=== PATIENT | female | born 1970 | race Caucasian/White ===

== ENCOUNTER 2024-04-06 12:11 | Inpatient (IN) | payer OTHER ==
[~2024-04-06] VITALS: Ht 154.9 cm; Wt 39.5 kg
[2024-04-06] VITALS (16 sets, daily range): BP systolic 102–131; BP diastolic 63–110; TEMP 98.5; O2SAT 91–97
[2024-04-06 13:17] LABS: BASOPHILS % (AUTO) 0.1 % (0.0-2.0); HEMATOCRIT 52 % (33-45); HEMOGLOBIN 16.7 g/dL (11.5-14.8); LYMPHOCYTES # (AUTO) 1.1 K/uL (0.8-4.8); LYMPHOCYTES % (AUTO) 8.3 % (20.0-44.0); MEAN CORPUSCULAR HEMOGLOBIN 30 PG (26.0-33.0); MEAN CORPUSCULAR HGB CONC 32 g/dl (31.0-36.0); MEAN CORPUSCULAR VOLUME 92 fL (82-100); MONOCYTES # (AUTO) 1.5 K/uL (0.1-1.30); MONOCYTES % (AUTO) 11.4 % (2.0-12.0); NEUTROPHILS # (AUTO) 10.3 K/uL (1.8-8.9); NEUTROPHILS % (AUTO) 80.2 % (43.0-81.0); PLATELET COUNT (AUTO) 211 K/uL (150-450); WHITE BLOOD COUNT (AUTO) 12.9 K/uL (4.3-11.0)
[2024-04-06 13:26] LABS: INR 1.46 (0.91-1.10); PARTIAL THROMBOPLASTIN TIME 32.8 SEC (24.3-34.3); PROTHROMBIN TIME 15.1 SECS (9.2-11.1)
[2024-04-06] MEDS ORDERED: ALBUTEROL FS 2.5 MG/3 ML VIAL.NEB ONE (13:34)
[2024-04-06] MEDS ORDERED: IPRATROPIUM NEB FS 0.5 MG/2.5 ML AMPUL.NEB ONE (13:34)
[2024-04-06] MEDS: ALBUTEROL FS 2.5 MG/3 ML VIAL.NEB NEB ONE (13:42)
[2024-04-06] MEDS: IPRATROPIUM NEB FS 0.5 MG/2.5 ML AMPUL.NEB NEB ONE (13:42)
[2024-04-06 13:57] LABS: ALANINE AMINOTRANSFERASE 19 U/L (12-78); ALBUMIN 2.9 g/dL (3.4-5.0); ALKALINE PHOSPHATASE 109 U/L (46-116); ASPARTATE AMINOTRANSFERASE 21 U/L (15-37); BILIRUBIN,DIRECT 0.2 mg/dL (0.0-0.2); BILIRUBIN,TOTAL 0.7 mg/dL (0.2-1.0); CALCIUM, SERUM 9.2 mg/dL (8.5-10.1); CHLORIDE 84 mmol/L (98-107); CREATININE 1.4 mg/dL (0.6-1.3); POTASSIUM 3.2 mmol/L (3.5-5.1); SODIUM SERUM 131 mmol/L (136-145); UREA NITROGEN, BLOOD 29 mg/dL (7-18)
[2024-04-06 14:01] LABS: LACTIC ACID 2.9 mmol/L (0.4-2.0)
[2024-04-06] MEDS ORDERED: CEFTRIAXONE 1GM BAG (ER ONLY) 50 ML IV ONE (14:04)
[2024-04-06 14:08] LABS: CARBON DIOXIDE 10 mmol/L (21-32)
[2024-04-06 14:11] LABS: APPEARANCE,URINE SLIGHTLY CLOUDY (CLEAR); BILIRUBIN,URINE 1+ (NEGATIVE); BLOOD, URINE 1+ Ery/uL (NEGATIVE); COLOR,URINE YELLOW (YELLOW); KETONES,URINE 2+ mg/dL (NEGATIVE); LEUKOCYTE ESTERASE ,URINE NEGATIVE (NEGATIVE); NITRITE, URINE NEGATIVE (NEGATIVE); PH,URINE 5.5 (5.0-8.0); PROTEIN,URINE 2+ mg/dl (NEGATIVE); UGLUCOSE 3+ mg/dL (NEGATIVE); UROBILINOGEN,URINE 0.2 EU/dL (0.2)
[2024-04-06] MEDS: CEFTRIAXONE 1GM BAG (ER ONLY) 1 GM/50 ML PIGGYBACK IV ONE (14:13)
[2024-04-06] MEDS: IV NS 0.9% 1,000 ML BAG IV ONE (14:13)
[2024-04-06] MEDS ORDERED: Magnesium 1GM/D5W 100ML PREMIX 100 ML IV ONE (14:21)
[2024-04-06] MEDS ORDERED: POTASSIUM CL. PREMIX PERIPHER. 150 ML ONE (14:21)
[2024-04-06 14:28] LABS: GLUCOSE 886 mg/dL (74-106)
[2024-04-06] MEDS ORDERED: IV PREMIX NS + 40 MEQ KCL 1 L IV PRN (14:30)
[2024-04-06] MEDS ORDERED: INSULIN REGULAR, HUMAN 100 UNITS in IV NS 0.9% 100 ML IV PRN (14:30)
[2024-04-06 14:38] LABS: SQUAMOUS EPITHELIAL CELL,UR Many /HPF (None Seen)
[2024-04-06] MEDS: POTASSIUM CL. PREMIX PERIPHER. 50 ML IV SCH (14:46)
[2024-04-06] MEDS: Magnesium 1GM/D5W 100ML PREMIX 100 ML IV SCH (14:46)
[2024-04-06 14:51] LABS: ADD URINE CULTURE YES; BACTERIA,URINE Moderate /HPF (None Seen); YEAST,URINE Few /HPF (None Seen)
[2024-04-06 14:57] LABS: BAND % (MANUAL) 6 % (0.0-5.0); BASOPHILS % (MANUAL) 0 % (0.0-2.0); EOSINOPHILS % (MANUAL) 0 % (0-4); LYMPHOCYTES % (MANUAL) 11 % (16-48); MONOCYTES % (MANUAL) 7 % (0-11.0); NEUTROPHILS % (MANUAL) 76 (42-76); PLATELET ESTIMATE ADEQUATE
[2024-04-06] MEDS: AZITHROMYCIN 500 MG in IV D5W 250 ML IV ONE (14:57)
[2024-04-06 15:21] LABS: CALCIUM, SERUM 7.8 mg/dL (8.5-10.1); CREATININE 1.4 mg/dL (0.6-1.3); MAGNESIUM 2.5 mg/dL (1.8-2.4); PHOSPHORUS 4.2 mg/dL (2.5-4.9)
[2024-04-06] MEDS ORDERED: ZOLPIDEM TARTRATE 5 MG TABLET PO PRN (15:30)
[2024-04-06] MEDS ORDERED: MORPHINE SULFATE INJ 2 MG/ML DISP.SYRIN IV PRN (15:30)
[2024-04-06] MEDS ORDERED: MAGNESIUM HYDROXIDE 30 ML UDC PO PRN (15:30)
[2024-04-06] MEDS ORDERED: MAG HYDROX/AL HYDROX/SIMETH 30 ML UDC PO PRN (15:30)
[2024-04-06] MEDS ORDERED: Z GUARD REMEDY 4 OZ OINT TP PRN (15:30)
[2024-04-06 16:59] LABS: POTASSIUM 3.4 mmol/L (3.5-5.1)
[2024-04-06 17:00] LABS: CALCIUM, SERUM 7.8 mg/dL (8.5-10.1); CREATININE 1.3 mg/dL (0.6-1.3); MAGNESIUM 2.8 mg/dL (1.8-2.4)
[2024-04-06 17:02] LABS: PHOSPHORUS 3.4 mg/dL (2.5-4.9)
[2024-04-06 18:42] LABS: CALCIUM, SERUM 7.8 mg/dL (8.5-10.1); CREATININE 1.4 mg/dL (0.6-1.3); MAGNESIUM 2.7 mg/dL (1.8-2.4); PHOSPHORUS 3.3 mg/dL (2.5-4.9); POTASSIUM 3.6 mmol/L (3.5-5.1)
[2024-04-06] MEDS: INSULIN REGULAR, HUMAN 100 UNIT in IV NS 0.9% 99 ML IV PRN (19:48)
[2024-04-06] MEDS: BLOOD SUGAR DIAGNOSTIC 1 EACH STRIP IN SCH (19:48)
[2024-04-06 20:59] LABS: CALCIUM, SERUM 7.8 mg/dL (8.5-10.1); CREATININE 1.3 mg/dL (0.6-1.3); POTASSIUM 3.3 mmol/L (3.5-5.1)
[2024-04-06] MEDS: ENOXAPARIN SODIUM 40 MG/0.4 ML DISP.SYRIN SQ SCH (21:39)
[2024-04-07] VITALS (34 sets, daily range): BP systolic 94–137; BP diastolic 54–86; TEMP 98.7–99.5; O2SAT 87–99
[2024-04-07] MEDS: IV NS 0.9% 500 ML IV ONE (00:47)
[2024-04-07] MEDS: IV NS 0.9% 1,000 ML IV PRN (01:10)
[2024-04-07 01:55] LABS: CALCIUM, SERUM 7.8 mg/dL (8.5-10.1); CREATININE 1.1 mg/dL (0.6-1.3); POTASSIUM 3.2 mmol/L (3.5-5.1)
[2024-04-07] MEDS ORDERED: Potassium Chloride 20 MEQ in IV D5/ 0.9% NACL 1,000 ML IV PRN (03:00)
[2024-04-07] MEDS: IV D5/ 0.9% NACL 1,000 ML IV PRN (03:45)
[2024-04-07] MEDS: POTASSIUM CL. PREMIX PERIPHER. 50 ML IV SCH (03:53)
[2024-04-07 05:33] LABS: BASOPHILS % (AUTO) 0.1 % (0.0-2.0); HEMATOCRIT 41 % (33-45); HEMOGLOBIN 14.5 g/dL (11.5-14.8); LYMPHOCYTES # (AUTO) 0.8 K/uL (0.8-4.8); MEAN CORPUSCULAR HEMOGLOBIN 30 PG (26.0-33.0); MEAN CORPUSCULAR HGB CONC 35 g/dl (31.0-36.0); MEAN CORPUSCULAR VOLUME 84 fL (82-100); MONOCYTES # (AUTO) 0.6 K/uL (0.1-1.30); MONOCYTES % (AUTO) 7.2 % (2.0-12.0); NEUTROPHILS # (AUTO) 6.5 K/uL (1.8-8.9); NEUTROPHILS % (AUTO) 82.7 % (43.0-81.0); PLATELET COUNT (AUTO) 156 K/uL (150-450); RED CELL DISTRIBUTION WIDTH 13.1 % (11.5-15.0); WHITE BLOOD COUNT (AUTO) 7.8 K/uL (4.3-11.0)
[2024-04-07 05:36] LABS: CALCIUM, SERUM 7.8 mg/dL (8.5-10.1); POTASSIUM 3.1 mmol/L (3.5-5.1)
[2024-04-07 05:41] LABS: MAGNESIUM 2.1 mg/dL (1.8-2.4)
[2024-04-07 05:55] LABS: PHOSPHORUS 0.5 mg/dL (2.5-4.9)
[2024-04-07 07:04] LABS: THYROID STIMULATING HORMONE 0.24 uIU/mL (0.358-3.74)
[2024-04-07] MEDS: PANTOPRAZOLE 40 MG TABLET.DR PO SCH (08:13)
[2024-04-07 09:17] LABS: CALCIUM, SERUM 7.6 mg/dL (8.5-10.1); CREATININE 0.9 mg/dL (0.6-1.3); POTASSIUM 3.5 mmol/L (3.5-5.1)
[2024-04-07] MEDS ORDERED: DEXTROSE 50%-WATER 50 ML DISP.SYRIN IV PRN (11:00)
[2024-04-07] MEDS: Sodium Phosphate 30 MMOL in IV NS 0.9% 250 ML IV SCH (11:25)
[2024-04-07] MEDS: BLOOD SUGAR DIAGNOSTIC 1 EACH STRIP VI SCH (12:02)
[2024-04-07] MEDS: INSULIN REGULAR, HUMAN 100 UNIT/ML 3 ML VIAL SQ PRN (12:08)
[2024-04-07 12:28] LABS: LYMPHOCYTES % (MANUAL) 18 % (16-48); MONOCYTES % (MANUAL) 6 % (0-11.0); PLATELET ESTIMATE ADEQUATE
[2024-04-07 12:31] LABS: BAND % (MANUAL) 19 % (0.0-5.0); NEUTROPHILS % (MANUAL) 57 (42-76)
[2024-04-07] MEDS: INSULIN GLARGINE, 100 UNIT/ML CARTRIDGE SQ SCH (14:06)
[2024-04-07 14:20] LABS: CALCIUM, SERUM 7.4 mg/dL (8.5-10.1); CREATININE 0.9 mg/dL (0.6-1.3); POTASSIUM 2.9 mmol/L (3.5-5.1)
[2024-04-07 16:54] LABS: CALCIUM, SERUM 7.4 mg/dL (8.5-10.1); CREATININE 0.7 mg/dL (0.6-1.3)
[2024-04-07 17:04] LABS: POTASSIUM 2.7 mmol/L (3.5-5.1)
[2024-04-07] MEDS: GLUCERNA SHAKE 237 ML CAN PO SCH (17:42)
[2024-04-07] MEDS: POTASSIUM CHLORIDE 20 MEQ TAB.PRT.SR PO ONE (18:04)
[2024-04-07] MEDS: ACETAMINOPHEN 325 MG TABLET PO PRN (18:04)
[2024-04-07] MEDS: *INSULIN REGULAR(HUMULIN R)HUM 100 UNIT/ML VIAL SQ PRN (21:25)
[2024-04-07] MEDS ORDERED: CEFTRIAXONE 1GM BAG (ER ONLY) 50 ML IV ONE (23:48)
[2024-04-08] VITALS: BP 100/61; TEMP 99; O2SAT 92
[2024-04-08] MEDS: CEFTRIAXONE 1 G in IV D5W 50 ML IV SCH ×2 (00:08→23:10)
[2024-04-08 04:00] VITALS: BP 133/80; TEMP 98.2; O2SAT 96
[2024-04-08 06:36] LABS: BASOPHILS % (AUTO) 0.4 % (0.0-2.0); EOSINOPHILS % (AUTO) 0.3 % (0.0-6.0); HEMATOCRIT 36 % (33-45); HEMOGLOBIN 12.7 g/dL (11.5-14.8); LYMPHOCYTES % (AUTO) 9.8 % (20.0-44.0); MEAN CORPUSCULAR HEMOGLOBIN 30 PG (26.0-33.0); MEAN CORPUSCULAR HGB CONC 35 g/dl (31.0-36.0); MEAN CORPUSCULAR VOLUME 85 fL (82-100); MONOCYTES # (AUTO) 0.5 K/uL (0.1-1.30); MONOCYTES % (AUTO) 5.3 % (2.0-12.0); NEUTROPHILS # (AUTO) 8.3 K/uL (1.8-8.9); NEUTROPHILS % (AUTO) 84.2 % (43.0-81.0); PLATELET COUNT (AUTO) 140 K/uL (150-450); RED BLOOD CELL COUNT(AUTO) 4.19 MIL/uL (4.0-5.2); RED CELL DISTRIBUTION WIDTH 13.4 % (11.5-15.0); WHITE BLOOD COUNT (AUTO) 9.9 K/uL (4.3-11.0)
[2024-04-08 07:09] LABS: ALBUMIN 1.5 g/dL (3.4-5.0); BILIRUBIN,TOTAL 0.3 mg/dL (0.2-1.0); CALCIUM, SERUM 6.7 mg/dL (8.5-10.1); CREATININE 0.5 mg/dL (0.6-1.3); MAGNESIUM 1.6 mg/dL (1.8-2.4); POTASSIUM 2.9 mmol/L (3.5-5.1)
[2024-04-08 08:00] VITALS: BP 118/66; TEMP 99; O2SAT 95
[2024-04-08 08:21] LABS: PHOSPHORUS 0.6 mg/dL (2.5-4.9)
[2024-04-08] MEDS: ONDANSETRON HCL/PF 4 MG/2 ML VIAL IVP PRN (09:45)
[2024-04-08] MEDS: POTASSIUM CHLORIDE 20 MEQ TAB.PRT.SR PO SCH (10:23)
[2024-04-08] MEDS: MAGNESIUM OXIDE 400 MG TABLET PO ONE (10:23)
[2024-04-08] MEDS: K PHOS NEUTRAL 250 MG TABLET PO SCH (12:08)
[2024-04-08] MEDS: POTASSIUM PHOSPHATE MM 7.5 MMOL in IV NS 0.9% 100 ML IV SCH (12:26)
[2024-04-08 16:00] VITALS: BP 107/64; TEMP 99; O2SAT 95
[2024-04-08 21:56] VITALS: BP 99/61; TEMP 100.4; O2SAT 94
[2024-04-08 23:23] VITALS: BP 99/61; TEMP 98.4; O2SAT 94
[2024-04-09 05:13] VITALS: BP 102/68; TEMP 100.2; O2SAT 97
[2024-04-09 05:56] LABS: BASOPHILS % (AUTO) 0.1 % (0.0-2.0); EOSINOPHILS % (AUTO) 0.4 % (0.0-6.0); HEMATOCRIT 33 % (33-45); HEMOGLOBIN 11.5 g/dL (11.5-14.8); MEAN CORPUSCULAR HEMOGLOBIN 30 PG (26.0-33.0); MEAN CORPUSCULAR HGB CONC 35 g/dl (31.0-36.0); MEAN CORPUSCULAR VOLUME 84 fL (82-100); MONOCYTES # (AUTO) 0.6 K/uL (0.1-1.30); MONOCYTES % (AUTO) 6.1 % (2.0-12.0); NEUTROPHILS # (AUTO) 7.9 K/uL (1.8-8.9); NEUTROPHILS % (AUTO) 82.4 % (43.0-81.0); PLATELET COUNT (AUTO) 171 K/uL (150-450); RED BLOOD CELL COUNT(AUTO) 3.87 MIL/uL (4.0-5.2); WHITE BLOOD COUNT (AUTO) 9.5 K/uL (4.3-11.0)
[2024-04-09 06:39] LABS: CALCIUM, SERUM 7.2 mg/dL (8.5-10.1); CREATININE 0.6 mg/dL (0.6-1.3); MAGNESIUM 1.4 mg/dL (1.8-2.4)
[2024-04-09 06:42] LABS: POTASSIUM 2.5 mmol/L (3.5-5.1)
[2024-04-09] MEDS: POTASSIUM CL. PREMIX PERIPHER. 50 ML IV SCH (08:13)
[2024-04-09] MEDS: MAGNESIUM OXIDE 400 MG TABLET PO ONE (09:39)
[2024-04-09 12:00] VITALS: BP 115/75; TEMP 98.5; O2SAT 97
[2024-04-09] MEDS: VANCOMYCIN 1 GM in IV D5W 250ml IV ONE (13:18)
[2024-04-09 20:00] VITALS: BP 94/60; TEMP 98.1; O2SAT 95
[2024-04-09] MEDS: VANCOMYCIN 750 MG in IV D5W 250 ML IV SCH (20:05)
[2024-04-10 04:00] VITALS: BP 108/62; TEMP 98.2; O2SAT 96
[2024-04-10 08:47] LABS: BASOPHILS % (AUTO) 0.3 % (0.0-2.0); EOSINOPHILS # (AUTO) 0.1 K/uL (0.0-0.7); EOSINOPHILS % (AUTO) 0.9 % (0.0-6.0); HEMATOCRIT 38 % (33-45); HEMOGLOBIN 12.9 g/dL (11.5-14.8); LYMPHOCYTES % (AUTO) 11.2 % (20.0-44.0); MEAN CORPUSCULAR HEMOGLOBIN 30 PG (26.0-33.0); MEAN CORPUSCULAR HGB CONC 34 g/dl (31.0-36.0); MEAN CORPUSCULAR VOLUME 86 fL (82-100); MONOCYTES # (AUTO) 0.7 K/uL (0.1-1.30); MONOCYTES % (AUTO) 7.8 % (2.0-12.0); NEUTROPHILS % (AUTO) 79.8 % (43.0-81.0); PLATELET COUNT (AUTO) 223 K/uL (150-450); RED BLOOD CELL COUNT(AUTO) 4.37 MIL/uL (4.0-5.2); RED CELL DISTRIBUTION WIDTH 13.2 % (11.5-15.0); WHITE BLOOD COUNT (AUTO) 8.8 K/uL (4.3-11.0)
[2024-04-10 09:40] LABS: ALBUMIN 1.6 g/dL (3.4-5.0); BILIRUBIN,TOTAL 0.3 mg/dL (0.2-1.0); CALCIUM, SERUM 7.4 mg/dL (8.5-10.1); CREATININE 0.7 mg/dL (0.6-1.3); MAGNESIUM 1.9 mg/dL (1.8-2.4); PHOSPHORUS 1.1 mg/dL (2.5-4.9)
[2024-04-10] MEDS: POTASSIUM CHLORIDE 20 MEQ TAB.PRT.SR PO STA (10:41)
[2024-04-10] MEDS ORDERED: GLIP-16 PO (10:47)
[2024-04-10] MEDS ORDERED: METF-440 PO (10:47)
[2024-04-10 12:00] VITALS: BP 114/74; TEMP 98.5; O2SAT 94
[2024-04-10] MEDS: HYDROCODONE/APAP 5/325MG TABLET PO PRN (13:27)
[2024-04-10 20:00] VITALS: BP 102/63; TEMP 99.7; O2SAT 95
[2024-04-11 04:00] VITALS: BP 103/76; TEMP 99; O2SAT 96
[2024-04-11 12:04] VITALS: BP 114/74; TEMP 98.5; O2SAT 94
[2024-04-11] MEDS: METFORMIN 500 MG TABLET PO SCH (13:22)
[2024-04-11] MEDS: glipiZIDE 5 MG TABLET PO SCH (13:22)
[2024-04-11 13:26] LABS: ALBUMIN 1.5 g/dL (3.4-5.0); BILIRUBIN,TOTAL 0.3 mg/dL (0.2-1.0); CALCIUM, SERUM 6.7 mg/dL (8.5-10.1); CREATININE 0.6 mg/dL (0.6-1.3); MAGNESIUM 1.7 mg/dL (1.8-2.4); TOTAL PROTEIN, SERUM 6.1 g/dL (6.4-8.2)
[2024-04-11 13:48] LABS: BASOPHILS % (AUTO) 0.5 % (0.0-2.0); EOSINOPHILS % (AUTO) 0.5 % (0.0-6.0); HEMATOCRIT 36 % (33-45); HEMOGLOBIN 12.2 g/dL (11.5-14.8); LYMPHOCYTES # (AUTO) 1.1 K/uL (0.8-4.8); LYMPHOCYTES % (AUTO) 12.3 % (20.0-44.0); MEAN CORPUSCULAR HEMOGLOBIN 30 PG (26.0-33.0); MEAN CORPUSCULAR HGB CONC 34 g/dl (31.0-36.0); MEAN CORPUSCULAR VOLUME 88 fL (82-100); MONOCYTES # (AUTO) 1.1 K/uL (0.1-1.30); MONOCYTES % (AUTO) 12.9 % (2.0-12.0); NEUTROPHILS # (AUTO) 6.3 K/uL (1.8-8.9); NEUTROPHILS % (AUTO) 73.8 % (43.0-81.0); PLATELET COUNT (AUTO) 249 K/uL (150-450); RED BLOOD CELL COUNT(AUTO) 4.12 MIL/uL (4.0-5.2); RED CELL DISTRIBUTION WIDTH 13.8 % (11.5-15.0); WHITE BLOOD COUNT (AUTO) 8.5 K/uL (4.3-11.0)
[2024-04-11 14:01] LABS: POTASSIUM 2.7 mmol/L (3.5-5.1)
[2024-04-11] MEDS ORDERED: Magnesium 1GM/D5W 100ML PREMIX PIGGYBACK IV ONE (14:30)
[2024-04-11] MEDS ORDERED: POTASSIUM CL. PREMIX PERIPHER. 50 ML IV SCH (14:30)
[2024-04-11] MEDS ORDERED: POTASSIUM CHLORIDE 20 MEQ TAB.PRT.SR PO ONE (14:30)
[2024-04-11] MEDS: Magnesium 1GM/D5W 100ML PREMIX 100 ML IV SCH (14:45)
[2024-04-11] MEDS: POTASSIUM CHLORIDE 20 MEQ TAB.PRT.SR PO ONE ×2 (14:45→23:36)
[2024-04-11 20:00] VITALS: BP 105/65; TEMP 99; O2SAT 95
[2024-04-11 22:36] LABS: POTASSIUM 3.3 mmol/L (3.5-5.1)
[2024-04-11 22:42] LABS: CALCIUM, SERUM 7.4 mg/dL (8.5-10.1); CREATININE 0.7 mg/dL (0.6-1.3)
[2024-04-12 04:00] VITALS: BP 115/60; TEMP 97.9; O2SAT 95
[2024-04-12 08:00] VITALS: BP 121/68; TEMP 97.9; O2SAT 96
[2024-04-12 13:30] LABS: CALCIUM, SERUM 7.7 mg/dL (8.5-10.1); CREATININE 0.8 mg/dL (0.6-1.3); POTASSIUM 4.5 mmol/L (3.5-5.1)
[2024-04-12 16:00] VITALS: BP 124/75; TEMP 98.8; O2SAT 95
[2024-04-12] MEDS ORDERED: VANCOMYCIN 500 MG in IV D5W 100ml IV SCH (20:00)
== END 2024-04-12 19:11 | DRG 420 ==
LOC: ER 12:15 → ICU 16:44 → MEDSG1 04-07 12:54
PROVIDERS: ADMIT Nurse Practitioner Acute Care
DX: E11.10 Type 2 diabetes mellitus with ketoacidosis without coma (principal); E43 Unspecified severe protein-calorie malnutrition; N17.9 Acute kidney failure, unspecified; R64 Cachexia; R78.81 Bacteremia; D58.2 Other hemoglobinopathies; E83.39 Other disorders of phosphorus metabolism; E86.0 Dehydration; E87.6 Hypokalemia; E87.1 Hypo-osmolality and hyponatremia; Z20.822 Contact with and (suspected) exposure to COVID-19; Z85.3 Personal history of malignant neoplasm of breast; Z92.21 Personal history of antineoplastic chemotherapy; I10 Essential (primary) hypertension; E86.1 Hypovolemia; Z90.11 Acquired absence of right breast and nipple; Z91.199 Patient's noncompliance with other medical treatment and regimen due to unspecified reason; F17.210 Nicotine dependence, cigarettes, uncomplicated; B95.62 Methicillin resistant Staphylococcus aureus infection as the cause of diseases classified elsewhere; E83.42 Hypomagnesemia; Z68.1 Body mass index [BMI] 19.9 or less, adult
CPT/HCPCS: 36415; 71045-TC; 80048-TC; 80053-TC; 80061-TC; 80076-TC; 80202-TC; 81001; 82010-TC; 82947-TC; 82962-TC; 83605-TC; 83735-TC; 84100-TC; 84443-TC; 84484-TC; 85025-TC; 85730-TC; 87040-TC; 87086-TC; 87186-TC; 93307-TC; 94799-TC; 97110-TC; 97116-TC; 97530-TC; 97535-TC; A4223; A9563; G0378; J0456; J0696; J1650; J1815; J2405; J3370; J3371; J3475; J3480; J3490; J7030; J7040; J7042; J7050; J7060

== ENCOUNTER → 2024-10-29 | Emergency (ER) | payer MEDICAID, OTHER ==
[~2024-10-29] VITALS: Ht 162.6 cm; Wt 44.0 kg
[~2024-10-29] MED LIST: GLIP-16 PO; METF-440 PO
[2024-10-29 20:20] LABS: BASOPHILS % (AUTO) 0.1 % (0.0-2.0); HEMATOCRIT 44 % (33-45); HEMOGLOBIN 14.7 g/dL (11.5-14.8); LYMPHOCYTES # (AUTO) 1.5 K/uL (0.8-4.8); LYMPHOCYTES % (AUTO) 12.5 % (20.0-44.0); MEAN CORPUSCULAR HEMOGLOBIN 30 PG (26.0-33.0); MEAN CORPUSCULAR HGB CONC 34 g/dl (31.0-36.0); MEAN CORPUSCULAR VOLUME 89 fL (82-100); MONOCYTES % (AUTO) 7.9 % (2.0-12.0); NEUTROPHILS # (AUTO) 9.6 K/uL (1.8-8.9); NEUTROPHILS % (AUTO) 79.5 % (43.0-81.0); PLATELET COUNT (AUTO) 210 K/uL (150-450); RED BLOOD CELL COUNT(AUTO) 4.93 MIL/uL (4.0-5.2); RED CELL DISTRIBUTION WIDTH 15.1 % (11.5-15.0); WHITE BLOOD COUNT (AUTO) 12.1 K/uL (4.3-11.0)
[2024-10-29 20:28] LABS: INR 1.07 (0.91-1.10); PARTIAL THROMBOPLASTIN TIME 22.2 SEC (24.3-34.3); PROTHROMBIN TIME 11.3 SECS (9.2-11.1)
[2024-10-29 20:32] LABS: BILIRUBIN,DIRECT 0.1 mg/dL (0.0-0.2); BILIRUBIN,TOTAL 0.6 mg/dL (0.2-1.0); CALCIUM, SERUM 9.3 mg/dL (8.5-10.1); CREATININE 0.8 mg/dL (0.6-1.3); POTASSIUM 3.7 mmol/L (3.5-5.1)
[2024-10-29 21:04] LABS: ALBUMIN 1.2 g/dL (3.4-5.0)
[2024-10-29 21:47] VITALS: BP 146/96; TEMP 98.2; O2SAT 97
== END | disposition left against medical advice (07) ==
LOC: ER 19:20
DX: R18.8 Other ascites (principal); R53.1 Weakness; R00.0 Tachycardia, unspecified; R14.0 Abdominal distension (gaseous); C50.919 Malignant neoplasm of unspecified site of unspecified female breast; E11.65 Type 2 diabetes mellitus with hyperglycemia; E86.0 Dehydration; I10 Essential (primary) hypertension; Z79.84 Long term (current) use of oral hypoglycemic drugs; Z85.3 Personal history of malignant neoplasm of breast; Z90.11 Acquired absence of right breast and nipple
CPT/HCPCS: 36415; 71045-TC; 80048-TC; 80076-TC; 82140-TC; 83690-TC; 85025-TC; 85730-TC